=== PATIENT | female | born 1960 | race Caucasian/White ===

== ENCOUNTER 2016-08-09 07:56 | Day surgery (SDC) | payer BC ==
[~2016-08-09 07:56] MED LIST: Clindamycin Phosphate 600 MG in Sodium Chloride 0.9% 100 ML IV ONE; Lactated Ringers 1,000 ML IV SCH; Sodium Chloride 0.9% 10 ML Syringe FLUSH PRN
[2016-08-09] MEDS ORDERED: fentaNYL 100 MCG/2 ML SDV ONE (09:57)
[2016-08-09] MEDS ORDERED: Ketorolac 30 MG/ML SDV ONE (09:57)
[2016-08-09] MEDS ORDERED: Midazolam 1 MG/ML 2 ML SDV ONE (09:57)
[2016-08-09] MEDS ORDERED: Ondansetron 4 MG/2 ML SDV ONE (09:57)
[2016-08-09] MEDS ORDERED: Famotidine 20 MG/2 ML SDV ONE (09:58)
[2016-08-09] MEDS ORDERED: Propofol 200 MG/20 ML SDV ONE (09:58)
[2016-08-09] MEDS ORDERED: Lidocaine 1% 30 ML SDV ONE (10:02)
[2016-08-09] MEDS ORDERED: Bupivacaine 0.5% 10 ML SDV ONE (10:02)
[2016-08-09] MEDS ORDERED: Bupivacaine 0.5% 10 ML SDV INJECT ONE ×4 (10:29→16:47)
[2016-08-09] MEDS ORDERED: Lidocaine 1% 30 ML SDV INJECT ONE ×4 (10:29→16:47)
[2016-08-09] MEDS ORDERED: Acetaminophen/oxyCODONE 325-5 MG Tab PO PRN (11:34)
--- NOTE | 2016-08-09 11:34 | PCM.OPNOTE ---
- General Post-Op/Procedure Note Date of Surgery/Procedure: 08/09/16 Operative Procedure(s): right foot 2nd digit PIPJ arthrodesis Pre Op Diagnosis: Right foot painful 2nd hammertoe Post-Op Diagnosis: juan Anesthesia Technique: Local, MAC Primary Surgeon: Pippa Cantu Anesthesia Provider: Bravo العلي EBL in mLs: 5 Complications: none Condition: Good Free Text/Narrative:: Pt tolerated procedure well and was transported to recovery with vascular status intact to right foot and 2nd toe. TT 35 mins. 0.062 inch k wire to 2nd toe.
[2016-08-09 12:49] VITALS: BP 132/68
[2016-08-09] MEDS ORDERED: Ketorolac 30 MG/ML SDV IVPUSH ONE (15:50)
[2016-08-09] MEDS ORDERED: Famotidine 20 MG/2 ML SDV IV ONE (15:50)
[2016-08-09] MEDS ORDERED: Midazolam 1 MG/ML 2 ML SDV IV ONE (15:50)
[2016-08-09] MEDS ORDERED: Ondansetron 4 MG/2 ML SDV IV ONE (15:50)
[2016-08-09] MEDS ORDERED: fentaNYL 100 MCG/2 ML SDV IV ONE (15:50)
[2016-08-09] MEDS ORDERED: Propofol 200 MG/20 ML SDV IV ONE (15:50)
--- NOTE | 2016-08-09 19:46 | OR ---
DATE: 08/09/2016 PREOPERATIVE DIAGNOSIS: Right foot painful hammer toe, 2nd digit. POSTOPERATIVE DIAGNOSIS: Right foot painful hammer toe, 2nd digit. PROCEDURE PERFORMED: Right foot 2nd digit proximal interphalangeal joint arthrodesis with pinning. ANESTHESIA: Local MAC with preoperative local block of 10 mL 1:1 mixture of 1% lidocaine plain and 0.5% Marcaine plain. TOURNIQUET TIME: 35 minutes, pneumatic ankle tourniquet. ESTIMATED BLOOD LOSS: Minimal. SPECIMEN: None. COMPLICATIONS: None. INDICATIONS: Bladimir is a 56-year-old female, who presents with right 2nd toe pain. She states she broke that 2nd toe approximately 5-6 years ago. It has been painful ever since that injury. She also notes that she keeps stubbing the toe causing increased pain. The toe has been swollen and discolored for a few years now. She has tried to wear good shoes with hard soles, but this does not help. 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 She would like to talk about surgical correction. 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 The patient voiced good understanding of proposed procedure and possible complications, elects to have surgery at this time. She also has a very large bunion on that foot, but that does not bother her, so she does not want that corrected at this time, we will just focus on the right 2nd toe and correct that today. DESCRIPTION OF THE PROCEDURE: The patient was taken the operating room, lying in the supine position. After adequate anesthesia induction as described above, the right foot was prepped and draped in the usual sterile fashion. A pneumatic ankle tourniquet was inflated to 225 mmHg. Attention was then directed to the right foot 2nd digit where a linear incision was made centered dorsally over the proximal interphalangeal joint. Sharp dissection was performed down to the level of the extensor tendon. A transverse tenotomy capsulotomy of the proximal interphalangeal joint was made. The extensor tendon was reflected proximally and the soft tissue removed sharply to expose the head of the proximal phalanx. A sagittal saw was used to resect the head of the proximal phalanx and to remove the cartilage from the base of the intermediate phalanx. At this time, a 0.062 inch K-wire was inserted from proximal to distal exiting the digit distally. The digit was then placed in a straight alignment and the K-wire was retrograded through the proximal phalanx. The digit was noted to be in near anatomic alignment at this time, fluoroscopy was used to verify proper position of pin and toe joint with good compression. All sites were then lavaged with copious amounts of sterile saline. The tendon was repaired with 3-0 Vicryl and skin closure was completed with 4-0 nylon. The foot was then dressed with Xeroform to the incision site, fluffs, Webril, and a well-padded dressing with Sammy wrap. She was then placed into a Cam boot. The patient tolerated the procedure and anesthesia well and left the operating room for recovery with vital signs stable and vascular status intact to the right foot as noted by immediate hyperemia to all digits upon deflation of ankle tourniquet. The patient was then discharged home when she met hospital discharge requirements. [facility] /[id number] [place]
== END 2016-08-09 12:15 | disposition home or self-care (01) ==
LOC: DL.SDS 07:56
PROVIDERS: ATTEND Podiatrist
DX: M20.41 Other hammer toe(s) (acquired), right foot (principal); G43.909 Migraine, unspecified, not intractable, without status migrainosus; E03.9 Hypothyroidism, unspecified; E55.9 Vitamin D deficiency, unspecified; E66.9 Obesity, unspecified; F41.8 Other specified anxiety disorders; Z86.711 Personal history of pulmonary embolism; Z79.01 Long term (current) use of anticoagulants; Z90.81 Acquired absence of spleen; Z79.899 Other long term (current) drug therapy; Z88.0 Allergy status to penicillin; Z87.891 Personal history of nicotine dependence; Z68.43 Body mass index [BMI] 50.0-59.9, adult
CPT/HCPCS: 28285; 36415; 76000; 84703; 85610; J1885; J2250; J2405; J2704; J3010; J7050; J7120; S0028; S0077

== ENCOUNTER 2022-05-31 22:25 | Emergency (ER) | payer OTHER ==
[2022-05-31] MEDS ORDERED: Sodium Chloride 0.9% 10 ML Syringe FLUSH PRN (22:40)
[2022-05-31 22:45] LABS: AMPHETAMINES,URINE NEGATIVE (NEGATIVE); BARBITURATES,URINE NEGATIVE (NEGATIVE); BENZODIAZEPINE,URINE POSITIVE (NEGATIVE); MDMA (ECSTASY), URINE NEGATIVE (NEGATIVE); METHADONE,URINE NEGATIVE (NEGATIVE); METHAMPHETAMINES,URINE NEGATIVE (NEGATIVE); OPIATES,URINE POSITIVE (NEGATIVE); OXYCODONE,URINE NEGATIVE (NEGATIVE); PHENCYCLIDINE,URINE NEGATIVE (NEGATIVE); TCA,URINE NEGATIVE (NEGATIVE)
[2022-05-31] MEDS ORDERED: Ondansetron 4 MG/2 ML SDV IVPUSH ONE (22:59)
[2022-05-31 23:16] LABS: ANION GAP 11.2 mEq/L (7-13); CHLORIDE,CL 100 mmol/L (98-107); ESTIMATED GFR 77 mL/min (>=60); SODIUM,NA 140 mmol/L (136-145)
[2022-05-31 23:18] LABS: PTT,PARTIAL THROMBOPLSTIN TIME 34.7 SEC (22.0-34.0)
[2022-05-31] MEDS ORDERED: Albuterol/Ipratropium 3.0-0.5 MG/3 ML Neb Soln NEB ONE (23:41)
[2022-06-01 08:11] VITALS: BP 132/58; PULSE 79
== END 2022-06-01 14:06 | disposition home or self-care (01) ==
LOC: DL.ED 22:25
DX: R09.02 Hypoxemia (principal); E03.9 Hypothyroidism, unspecified; I10 Essential (primary) hypertension; Z88.0 Allergy status to penicillin; Z79.899 Other long term (current) drug therapy; Z79.02 Long term (current) use of antithrombotics/antiplatelets
CPT/HCPCS: 36415; 71045; 80053; 80305; 81001; 82947; 83605; 83735; 83880; 84145; 84443; 84484; 85025; 85379; 85610; 85730; 86140; 93005; 93010; 94640; 96374; 99284; 99285; J2405; J3490; J7620-GY

== ENCOUNTER 2024-01-11 13:41 | Inpatient (IN) | payer OTHER ==
[2024-01-11] MEDS ORDERED: Sodium Chloride 0.9% 10 ML Syringe FLUSH PRN (13:46)
[2024-01-11 13:59] LABS: BASOPHILS PERCENT AUTO 0.3 % (0.0-1.0); EOSINOPHILS PERCENT AUTO 0.1 % (1.0-3.0); HEMATOCRIT 47.5 % (37.0-47.0); HEMOGLOBIN 15.2 g/dL (12.0-16.0); LYMPHOCYTES PERCENT AUTO 16.1 % (20.5-50.1); MEAN CORPUSCULAR HEMOGLOBIN 31.7 pg (27.0-34.0); MONOCYTES PERCENT AUTO 11.9 % (2-8); NEUTROPHILS PERCENT AUTO 71.6 % (42.2-75.2); PLATELET COUNT,PLT 272 10^3/uL (150-450); WHITE BLOOD CELL COUNT,WBC 16.3 10^3/uL (5.0-10.0)
[2024-01-11] MEDS: Simethicone 80 MG Tab.Chew PO ONE (14:01)
[2024-01-11] MEDS: Metoclopramide 10 MG/2 ML SDV IVPUSH ONE (14:04)
[2024-01-11 14:14] LABS: INR 1.1 (0.9-1.2); PROTHROMBIN TIME 10.9 SEC (9.0-12.0); PTT,PARTIAL THROMBOPLSTIN TIME 24.5 SEC (22.0-34.0)
[2024-01-11 14:18] LABS: ALANINE AMINOTRANSFERASE,ALT 37 U/L (14-59); ALBUMIN 3.3 g/dL (3.4-5.0); ALKALINE PHOSPHATASE 64 U/L (46-116); AMYLASE 33 U/L (25-115); ASPARTATE AMNIOTRANSFERASE,AST 25 U/L (15-37); BILIRUBIN TOTAL 0.4 mg/dL (0.2-1.0); BLOOD UREA NITROGEN,BUN 17 mg/dL (7-18); BUN/CREATININE RATIO 22.1 (No establ ref range); C-REACTIVE PROTEIN 1.11 ng/dL (<=0.50); CALCIUM 9.7 mg/dL (8.5-10.1); CARBON DIOXIDE,CO2 33 mmol/L (21-32); CHLORIDE,CL 99 mmol/L (98-107); CREATININE 0.77 mg/dL (0.55-1.02); EST CRCL DRUG DOSING (CG) 70.92 mL/min; GLUCOSE RANDOM 152 mg/dL (70-99); LIPASE 15 U/L (16-77); PROTEIN TOTAL,TP 7.4 g/dL (6.4-8.2); SODIUM,NA 138 mmol/L (136-145)
[2024-01-11 14:19] LABS: ESTIMATED GFR 87 mL/min (>=60); LACTIC ACID 1.8 mmol/L (0.4-2.0)
[2024-01-11] MEDS ORDERED: Naloxone 2 MG/2 ML Syringe IVPUSH PRN (16:48)
[2024-01-11] MEDS ORDERED: Metoclopramide 10 MG/2 ML SDV IV PRN (16:51)
[2024-01-11] MEDS ORDERED: Zolpidem 5 MG Tab PO PRN (16:51)
[2024-01-11] MEDS ORDERED: Bisacodyl 5 MG Tab PO PRN (16:51)
[2024-01-11] MEDS ORDERED: Sennosides/Docusate Sodium 50-8.6 MG Tab PO PRN (16:51)
[2024-01-11] MEDS ORDERED: Magnesium Hydroxide 400 MG/5 ML Susp 30 ML Cup PO PRN (16:51)
[2024-01-11] MEDS ORDERED: hydrALAZINE 20 MG/ML SDV IVPUSH PRN (16:57)
[2024-01-11] MEDS ORDERED: Oxymetazoline 0.05% Nasal Spray 30 ML Bottle NASBOTH PRN (16:57)
[2024-01-11] MEDS: Simethicone 80 MG Tab.Chew PO PRN (17:06)
[2024-01-11] MEDS: fentaNYL 100 MCG/2 ML SDV IVPUSH ONE (17:07)
[2024-01-11] MEDS: Scopalamine 1mg/3day Transdermal Patch TOP ONE (17:22)
[2024-01-11] MEDS ORDERED: Acetaminophen/Butalbital/Caffeine 325-50-40 MG Tab PO PRN (17:33)
[2024-01-11 17:40] LABS: T4 FREE 1.64 ng/dL (0.76-1.46); TSH ULTRASENSITIVE 0.36 uIU/mL (0.36-3.74)
[2024-01-11] MEDS: Dextrose 5%-0.9% NaCl 1,000 ML IV SCH (18:20)
[2024-01-11] MEDS: oxyCODONE 5 MG Tab PO PRN (20:33)
[2024-01-11] MEDS: Melatonin 3 MG Tab PO PRN (20:37)
[2024-01-11] MEDS: Enoxaparin 80 MG/0.8 ML Syringe SUBCUT SCH (20:37)
[2024-01-11] MEDS ORDERED: Sotalol 80 MG Tab PO SCH (21:00)
[2024-01-11] MEDS: Acetaminophen 325 MG Tab PO PRN (23:17)
[2024-01-11] MEDS: fentaNYL 100 MCG/2 ML SDV IVPUSH PRN (23:21)
[2024-01-12] MEDS: LORazepam 1 MG Tab PO PRN (03:22)
[2024-01-12] MEDS: Levothyroxine 75 MCG Tab PO SCH (06:57)
[2024-01-12] MEDS: Levothyroxine 100 MCG Tab PO SCH (06:58)
[2024-01-12] MEDS: Formoterol/Mometasone 200-5 MCG 8.8 GM Inhaler INH SCH (06:58)
[2024-01-12 08:19] LABS: BASOPHILS PERCENT AUTO 0.3 % (0.0-1.0); EOSINOPHILS PERCENT AUTO 0.1 % (1.0-3.0); HEMATOCRIT 47.4 % (37.0-47.0); LYMPHOCYTES PERCENT AUTO 14.3 % (20.5-50.1); MEAN CORPUSCULAR HEMOGLOBIN 31.6 pg (27.0-34.0); MEAN CORPUSCULAR HGB CONC 31.6 g/dL (33.0-35.0); MEAN CORPUSCULAR VOLUME 99.8 fL (80-100); MONOCYTES PERCENT AUTO 12.2 % (2-8); NEUTROPHILS PERCENT AUTO 73.1 % (42.2-75.2); PLATELET COUNT,PLT 260 10^3/uL (150-450); RED BLOOD CELL COUNT 4.75 10^6/uL (4.2-5.4); WHITE BLOOD CELL COUNT,WBC 14.7 10^3/uL (5.0-10.0)
[2024-01-12 08:31] LABS: INR 1.1 (0.9-1.2); PROTHROMBIN TIME 10.9 SEC (9.0-12.0)
[2024-01-12 08:36] LABS: ANION GAP 6.4 mEq/L (7-13); BILIRUBIN TOTAL 0.6 mg/dL (0.2-1.0); BUN/CREATININE RATIO 21.1 (No establ ref range); C-REACTIVE PROTEIN 4.51 ng/dL (<=0.50); CALCIUM 9.2 mg/dL (8.5-10.1); CREATININE 0.71 mg/dL (0.55-1.02); EST CRCL DRUG DOSING (CG) 76.91 mL/min; MAGNESIUM 1.7 mg/dL (1.8-2.4); POTASSIUM,K 3.4 mmol/L (3.5-5.1); PROTEIN TOTAL,TP 6.9 g/dL (6.4-8.2)
[2024-01-12 08:37] LABS: A/G RATIO 0.77
[2024-01-12] MEDS: Hydrochlorothiazide 25 MG Tab PO SCH (09:19)
[2024-01-12] MEDS: Potassium Chloride 10 MEQ Tab.ER PO ONE (13:01)
[2024-01-12] MEDS: Magnesium Sulfate/Water Premix 2 GM in Premix Bag 1 BAG IV ONE (13:01)
[2024-01-12] MEDS: Warfarin 5 MG Tab PO ONE (13:28)
[2024-01-12] MEDS: Metoclopramide 10 MG/2 ML SDV IVPUSH SCH (13:28)
[2024-01-12] MEDS: Sotalol 80 MG Tab PO SCH (13:57)
[2024-01-12] MEDS: Water For Injection, Sterile 10 ML ONE (16:44)
[2024-01-12] MEDS: Pantoprazole 40 MG Tab.CR PO SCH (19:19)
[2024-01-13] MEDS: Levothyroxine 50 MCG Tab PO SCH (06:03)
[2024-01-13 06:34] LABS: BASOPHILS PERCENT AUTO 0.4 % (0.0-1.0); EOSINOPHILS PERCENT AUTO 1.3 % (1.0-3.0); HEMATOCRIT 42.7 % (37.0-47.0); HEMOGLOBIN 13.4 g/dL (12.0-16.0); LYMPHOCYTES PERCENT AUTO 28.1 % (20.5-50.1); MEAN CORPUSCULAR HEMOGLOBIN 31.9 pg (27.0-34.0); MEAN CORPUSCULAR HGB CONC 31.4 g/dL (33.0-35.0); MEAN CORPUSCULAR VOLUME 101.7 fL (80-100); MONOCYTES PERCENT AUTO 17.5 % (2-8); NEUTROPHILS PERCENT AUTO 52.7 % (42.2-75.2); PLATELET COUNT,PLT 230 10^3/uL (150-450)
[2024-01-13 06:45] LABS: INR 1.1 (0.9-1.2); PROTHROMBIN TIME 11.7 SEC (9.0-12.0)
[2024-01-13 07:11] LABS: A/G RATIO 0.7; ALBUMIN 2.6 g/dL (3.4-5.0); ANION GAP 5.5 mEq/L (7-13); BILIRUBIN TOTAL 0.7 mg/dL (0.2-1.0); BUN/CREATININE RATIO 16.7 (No establ ref range); C-REACTIVE PROTEIN 13.6 ng/dL (<=0.50); CALCIUM 9.1 mg/dL (8.5-10.1); CREATININE 0.66 mg/dL (0.55-1.02); EST CRCL DRUG DOSING (CG) 82.73 mL/min; MAGNESIUM 2.1 mg/dL (1.8-2.4); POTASSIUM,K 3.5 mmol/L (3.5-5.1); PROTEIN TOTAL,TP 6.3 g/dL (6.4-8.2)
[2024-01-13] MEDS: Midodrine 5 MG Tab PO SCH (08:49)
[2024-01-13] MEDS: Polyethylene Glycol 3350 Powder 17 GM Packet PO PRN (08:52)
[2024-01-13] MEDS: Ondansetron 4 MG/2 ML SDV IVPUSH PRN (09:02)
[2024-01-13] MEDS: Azithromycin 500 MG in Sodium Chloride 0.9% 250 ML IV ONE (14:19)
[2024-01-13] MEDS: cefTRIAXone 2 GM Vial IVPUSH ONE (14:19)
[2024-01-13] MEDS: Albuterol/Ipratropium 3.0-0.5 MG/3 ML Neb Soln NEB PRN (20:40)
[2024-01-13] MEDS: Saccharomyces Boulardii (Probiotic) 250 MG Cap PO SCH (20:41)
[2024-01-13] MEDS: Warfarin 5 MG Tab PO ONE (20:42)
[2024-01-13] MEDS: Sotalol 80 MG Tab PO SCH (20:48)
[2024-01-14 07:19] LABS: HEMATOCRIT 41.5 % (37.0-47.0); HEMOGLOBIN 12.9 g/dL (12.0-16.0); MEAN CORPUSCULAR HEMOGLOBIN 31.9 pg (27.0-34.0); MEAN CORPUSCULAR HGB CONC 31.1 g/dL (33.0-35.0); MEAN CORPUSCULAR VOLUME 102.5 fL (80-100); PLATELET COUNT,PLT 236 10^3/uL (150-450); RED BLOOD CELL COUNT 4.05 10^6/uL (4.2-5.4); WHITE BLOOD CELL COUNT,WBC 9.9 10^3/uL (5.0-10.0)
[2024-01-14 07:23] LABS: INR 1.1 (0.9-1.2); PROTHROMBIN TIME 11.5 SEC (9.0-12.0)
[2024-01-14 07:24] LABS: BASOPHILS PERCENT AUTO 0.6 % (0.0-1.0); LYMPHOCYTES PERCENT AUTO 31.2 % (20.5-50.1); MONOCYTES PERCENT AUTO 16.1 % (2-8); NEUTROPHILS PERCENT AUTO 48.1 % (42.2-75.2)
[2024-01-14 07:38] LABS: ALBUMIN 2.5 g/dL (3.4-5.0); BILIRUBIN TOTAL 0.4 mg/dL (0.2-1.0); BUN/CREATININE RATIO 18.2 (No establ ref range); C-REACTIVE PROTEIN 9.35 ng/dL (<=0.50); CALCIUM 9.4 mg/dL (8.5-10.1); CREATININE 0.77 mg/dL (0.55-1.02); EST CRCL DRUG DOSING (CG) 70.92 mL/min; MAGNESIUM 2.2 mg/dL (1.8-2.4); PROTEIN TOTAL,TP 6.1 g/dL (6.4-8.2)
[2024-01-14 07:41] LABS: A/G RATIO 0.69
[2024-01-14 08:13] LABS: BAND PERCENT MAN 1 %; EOSINOPHILS PERCENT MAN 3 % (1-3); LYMPHOCYTES PERCENT MAN 31 % (20-50); MONOCYTES PERCENT MAN 14 % (2-8); MYELOCYTE PERCENT MAN 2; SEG NEUTROPHILS PERCENT MAN 49 % (42-75)
[2024-01-14 08:14] LABS: HOWELL JOLLY BODIES FEW
[2024-01-14] MEDS: Azithromycin 500 MG in Sodium Chloride 0.9% 250 ML IV SCH (08:49)
[2024-01-14] MEDS: cefTRIAXone 2 GM Vial IVPUSH SCH (08:50)
[2024-01-14] MEDS: Warfarin 5 MG Tab PO ONE (19:49)
[2024-01-15 07:01] LABS: HEMATOCRIT 40.5 % (37.0-47.0); HEMOGLOBIN 12.7 g/dL (12.0-16.0); MEAN CORPUSCULAR HEMOGLOBIN 31.9 pg (27.0-34.0); MEAN CORPUSCULAR HGB CONC 31.4 g/dL (33.0-35.0); MEAN CORPUSCULAR VOLUME 101.8 fL (80-100); PLATELET COUNT,PLT 255 10^3/uL (150-450); RED BLOOD CELL COUNT 3.98 10^6/uL (4.2-5.4)
[2024-01-15 07:02] LABS: INR 1.3 (0.9-1.2); PROTHROMBIN TIME 13.4 SEC (9.0-12.0)
[2024-01-15 07:06] LABS: BASOPHILS PERCENT AUTO 0.5 % (0.0-1.0); LYMPHOCYTES PERCENT AUTO 33.6 % (20.5-50.1); MONOCYTES PERCENT AUTO 12.4 % (2-8); NEUTROPHILS PERCENT AUTO 49.5 % (42.2-75.2)
[2024-01-15 07:27] LABS: ALBUMIN 2.5 g/dL (3.4-5.0); ANION GAP 5.8 mEq/L (7-13); BILIRUBIN TOTAL 0.4 mg/dL (0.2-1.0); BUN/CREATININE RATIO 16.5 (No establ ref range); C-REACTIVE PROTEIN 5.68 ng/dL (<=0.50); CALCIUM 9.3 mg/dL (8.5-10.1); CREATININE 0.79 mg/dL (0.55-1.02); EST CRCL DRUG DOSING (CG) 69.12 mL/min; MAGNESIUM 2.1 mg/dL (1.8-2.4); POTASSIUM,K 3.8 mmol/L (3.5-5.1); PROTEIN TOTAL,TP 6.3 g/dL (6.4-8.2)
[2024-01-15 07:33] LABS: A/G RATIO 0.66
[2024-01-15 07:36] LABS: BAND PERCENT MAN 2 %; LYMPHOCYTES PERCENT MAN 31 % (20-50); SEG NEUTROPHILS PERCENT MAN 54 % (42-75)
[2024-01-15 07:37] LABS: EOSINOPHILS PERCENT MAN 3 % (1-3); MONOCYTES PERCENT MAN 10 % (2-8)
[2024-01-15] MEDS: Modafinil 100 MG Tab PO SCH (09:07)
[2024-01-15] MEDS: Lidocaine 5% Oint 35.44 GM Tube TOP PRN (11:10)
[2024-01-15] MEDS: Warfarin 5 MG Tab PO ONE (20:56)
[2024-01-16 08:06] LABS: BASOPHILS PERCENT AUTO 0.5 % (0.0-1.0); HEMATOCRIT 42.9 % (37.0-47.0); HEMOGLOBIN 13.9 g/dL (12.0-16.0); LYMPHOCYTES PERCENT AUTO 29.2 % (20.5-50.1); MEAN CORPUSCULAR HEMOGLOBIN 31.9 pg (27.0-34.0); MEAN CORPUSCULAR HGB CONC 32.4 g/dL (33.0-35.0); MEAN CORPUSCULAR VOLUME 98.4 fL (80-100); MONOCYTES PERCENT AUTO 13.5 % (2-8); NEUTROPHILS PERCENT AUTO 53.8 % (42.2-75.2); PLATELET COUNT,PLT 271 10^3/uL (150-450); RED BLOOD CELL COUNT 4.36 10^6/uL (4.2-5.4); WHITE BLOOD CELL COUNT,WBC 7.3 10^3/uL (5.0-10.0)
[2024-01-16 08:54] LABS: A/G RATIO 0.68; ALBUMIN 2.8 g/dL (3.4-5.0); ANION GAP 11.8 mEq/L (7-13); BILIRUBIN TOTAL 1.3 mg/dL (0.2-1.0); BUN/CREATININE RATIO 16.1 (No establ ref range); CALCIUM 9.4 mg/dL (8.5-10.1); CREATININE 0.62 mg/dL (0.55-1.02); EST CRCL DRUG DOSING (CG) 88.07 mL/min; MAGNESIUM 2.1 mg/dL (1.8-2.4); POTASSIUM,K 3.8 mmol/L (3.5-5.1); PROTEIN TOTAL,TP 6.9 g/dL (6.4-8.2)
[2024-01-16] MEDS: Warfarin 5 MG Tab PO ONE (20:15)
[2024-01-17 06:56] LABS: HEMATOCRIT 41.8 % (37.0-47.0); HEMOGLOBIN 13.6 g/dL (12.0-16.0); MEAN CORPUSCULAR HEMOGLOBIN 31.9 pg (27.0-34.0); MEAN CORPUSCULAR HGB CONC 32.5 g/dL (33.0-35.0); MEAN CORPUSCULAR VOLUME 98.1 fL (80-100); PLATELET COUNT,PLT 273 10^3/uL (150-450); RED BLOOD CELL COUNT 4.26 10^6/uL (4.2-5.4); WHITE BLOOD CELL COUNT,WBC 6.9 10^3/uL (5.0-10.0)
[2024-01-17 07:04] LABS: BASOPHILS PERCENT AUTO 0.6 % (0.0-1.0); EOSINOPHILS PERCENT AUTO 3.9 % (1.0-3.0); LYMPHOCYTES PERCENT AUTO 28.9 % (20.5-50.1); MONOCYTES PERCENT AUTO 13.2 % (2-8); NEUTROPHILS PERCENT AUTO 53.4 % (42.2-75.2)
[2024-01-17 07:13] LABS: ALBUMIN 2.7 g/dL (3.4-5.0); ANION GAP 10.7 mEq/L (7-13); BILIRUBIN TOTAL 2.2 mg/dL (0.2-1.0); BUN/CREATININE RATIO 15.5 (No establ ref range); C-REACTIVE PROTEIN 3.31 ng/dL (<=0.50); CALCIUM 9.5 mg/dL (8.5-10.1); CREATININE 0.58 mg/dL (0.55-1.02); EST CRCL DRUG DOSING (CG) 94.15 mL/min; POTASSIUM,K 3.7 mmol/L (3.5-5.1); PROTEIN TOTAL,TP 6.7 g/dL (6.4-8.2)
[2024-01-17 07:14] LABS: A/G RATIO 0.68
[2024-01-17 07:22] LABS: INR 3.2 (0.9-1.2); PROTHROMBIN TIME 31.2 SEC (9.0-12.0)
[2024-01-17 07:28] LABS: BAND PERCENT MAN 2 %; EOSINOPHILS PERCENT MAN 3 % (1-3); LYMPHOCYTES PERCENT MAN 27 % (20-50); MONOCYTES PERCENT MAN 10 % (2-8); SEG NEUTROPHILS PERCENT MAN 58 % (42-75)
[2024-01-17 07:29] LABS: HOWELL JOLLY BODIES 1+ SLIGHT
[2024-01-17 07:53] VITALS: BP 133/64
[2024-01-17 09:13] VITALS: PULSE 72
[2024-01-17] MEDS ORDERED: Warfarin 5 MG Tab PO ONE (21:00)
== END 2024-01-17 13:10 | disposition home or self-care (01) | DRG 193 ==
LOC: DL.ED 13:41 → DL.MS 15:37 → OBSVTOIN 01-12 11:58
PROVIDERS: ADMIT Internal Medicine; ATTEND Internal Medicine
DX: J18.9 Pneumonia, unspecified organism (principal); J96.01 Acute respiratory failure with hypoxia; J98.11 Atelectasis; B17.9 Acute viral hepatitis, unspecified; Z68.43 Body mass index [BMI] 50.0-59.9, adult; H54.7 Unspecified visual loss; E78.00 Pure hypercholesterolemia, unspecified; I10 Essential (primary) hypertension; G43.909 Migraine, unspecified, not intractable, without status migrainosus; F41.9 Anxiety disorder, unspecified; F32.A Depression, unspecified; E83.52 Hypercalcemia; R73.9 Hyperglycemia, unspecified; E88.09 Other disorders of plasma-protein metabolism, not elsewhere classified; G47.33 Obstructive sleep apnea (adult) (pediatric); E66.01 Morbid (severe) obesity due to excess calories; E87.6 Hypokalemia; E83.42 Hypomagnesemia; E03.9 Hypothyroidism, unspecified; Y95 Nosocomial condition; Z86.711 Personal history of pulmonary embolism; Z79.01 Long term (current) use of anticoagulants; Z88.0 Allergy status to penicillin; Z88.8 Allergy status to other drugs, medicaments and biological substances; Z79.899 Other long term (current) drug therapy; Z79.51 Long term (current) use of inhaled steroids; Z90.49 Acquired absence of other specified parts of digestive tract
CPT/HCPCS: 36415; 71045; 74176; 80053; 80061; 82150; 83036; 83605; 83690; 83735; 84145; 84439; 84443; 84484; 85025; 85379; 85610; 85730; 86140; 93005; 93010; 93306; 96372; 96374; 96375; 96376; 99223; 99232; 99238; 99285; 99285-25; A9270-GY; G0378; J0456; J0696; J1650; J2405; J2765; J3010; J3475; J7042; J7050; J7620-GY